=== PATIENT | female | born 1960 | race African-American/Black ===

== ENCOUNTER 2021-08-18 16:30 | Emergency (ER) | payer OTHER ==
[~2021-08-18] VITALS: Ht 165.1 cm; Wt 72.6 kg
[2021-08-18] MEDS ORDERED: KETOROLAC 60MG/2ML VIAL IM ONE (17:30)
[2021-08-18] MEDS ORDERED: TRAMADOL 50MG TABLET PO ONE (17:30)
[2021-08-18] MEDS ORDERED: IBUP-2029 MT (18:40)
[2021-08-18] MEDS ORDERED: TRAM50TA MT (18:40)
[2021-08-18] MEDS ORDERED: TRAM50TA3 MT (18:46)
[2021-08-18 21:37] VITALS: BP 155/70
== END 2021-08-18 21:45 | disposition home or self-care (01) ==
LOC: ER 16:30
DX: M54.42 Lumbago with sciatica, left side (principal); I10 Essential (primary) hypertension; E78.00 Pure hypercholesterolemia, unspecified; Z91.81 History of falling
CPT/HCPCS: 96372; 99285; J1885